=== PATIENT | female | born 1940 | race Caucasian/White ===

== ENCOUNTER → 2017-08-08 | Outpatient (CLI) | payer OTHER | LOC: FIMAGING 11:25 | PROVIDERS: ATTEND Internal Medicine | DX: Z12.31 Encounter for screening mammogram for malignant neoplasm of breast (principal) | CPT/HCPCS: G0202 ==

== ENCOUNTER 2018-12-03 18:04 | Observation (INO) | payer OTHER | END 2018-12-04 12:33 | disposition home or self-care (01) | LOC: F3N 22:51 ==